=== PATIENT | female | born 1970 ===

== ENCOUNTER 2019-11-08 12:00 | Outpatient (CLI) | payer MEDICAID, MEDICARE ==
[~2019-11-08] VITALS: Ht 162.6 cm; Wt 74.4 kg
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
[2019-11-13] MEDS ORDERED: NATURE-THROID32.5 MG PO (09:18)
[2019-11-13] MEDS ORDERED: IBUPROFEN600 M1 ORAL (09:18)
[2019-11-13] MEDS ORDERED: EMLA CREAM30 GM TOPIC (09:18)
[2019-11-13] MEDS ORDERED: ACETAMINOPHEN325 M1 ORAL (09:18)
[2019-11-13] MEDS ORDERED: VITAMIN B-121000 MC2 SL (09:18)
[2019-11-13] MEDS ORDERED: IMITREX50 MG ORAL (09:18)
[2019-11-13] MEDS ORDERED: WELLBUTRIN XL150 MG ORAL (09:18)
[2019-11-13] MEDS ORDERED: ARMOUR THYROID30 MG ORAL (09:18)
[2019-11-13] MEDS ORDERED: VITAMIN C500 M1 ORAL (09:18)
== END 2019-11-08 14:00 | disposition home or self-care (01) ==
LOC: PAN 12:00
DX: R10.9 Unspecified abdominal pain (principal); K21.9 Gastro-esophageal reflux disease without esophagitis; Z79.899 Other long term (current) drug therapy; Z88.6 Allergy status to analgesic agent; B27.00 Gammaherpesviral mononucleosis without complication; R19.7 Diarrhea, unspecified; K59.00 Constipation, unspecified; K57.90 Diverticulosis of intestine, part unspecified, without perforation or abscess without bleeding; R59.1 Generalized enlarged lymph nodes
CPT/HCPCS: G0463